=== PATIENT | female | born 1960 | race American Indian/Alaskan Native ===

== ENCOUNTER 2022-03-08 20:41 | Emergency (ER) | payer OTHER ==
--- NOTE | 2022-03-08 22:46 | XRay Report ---
CHEST 2 VIEWS INDICATION / CLINICAL INFORMATION: Upper Respiratory Infection. COMPARISON: None available. FINDINGS: SUPPORT DEVICES: None. HEART / MEDIASTINUM: Cardiomegaly. LUNGS / PLEURA: Central peribronchial thickening most likely representing bronchitis/bronchiolitis wi thout evidence for superimposed bacterial pneumonia. Left basilar atelectasis and/or trace effusion. No pneumothorax. ADDITIONAL FINDINGS: None IMPRESSION: 1. Central peribronchial thickening most likely representing bronchitis/bronchiolitis without evidenc e for superimposed bacterial pneumonia. Signer Name: Myke Munoz MD Signed: 03/08/2022 10:42 PM Workstation Name: [id number]
[2022-03-08 23:26] LABS: Basophils % (Auto) 0.3 % (0.0-1.8); Eosinophils # (Auto) 0.2 K/mm3 (0.0-0.4); Eosinophils % (Auto) 1.3 % (0.0-4.3); Hematocrit 28.3 % (30.3-42.9); Hemoglobin 9.1 gm/dl (10.1-14.3); Lymphocytes # (Auto) 1.3 K/mm3 (1.2-5.4); Lymphocytes % (Auto) 9.8 % (13.4-35.0); Mean Corpuscular HGB Conc 32 % (30-34); Mean Corpuscular Volume 82 fl (79-97); Monocytes # (Auto) 0.9 K/mm3 (0.0-0.8); Monocytes % (Auto) 7.3 % (0.0-7.3); Platelet Count 383 K/mm3 (140-440); Red Blood Count 3.46 M/mm3 (3.65-5.03)
[2022-03-09] MEDS ORDERED: MORPHINE 4 MG/1 ML INJ IV ONE (04:33)
[2022-03-09] MEDS ORDERED: dexAMETHasone 4 MG/ML VIAL IV ONE (04:33)
[2022-03-09 05:28] LABS: Alanine Aminotransferase 71 units/L (7-56); Albumin 3.1 g/dL (3.9-5); BUN/Creatinine Ratio 29; Blood Urea Nitrogen 23 mg/dL (7-17); Calcium 8.8 mg/dL (8.4-10.2); Hemolysis Index 6
[2022-03-09] MEDS ORDERED: SODIUM CHLORIDE 0.9% 1000 ML 1,000 ML IV ONE (06:23)
[2022-03-09] MEDS ORDERED: ALBUTEROL 2.5 MG/3 ML NEBU IH ONE (06:23)
[2022-03-09] MEDS ORDERED: ALBUTEROL 8.5 GM MDI INHALATION IH ONE (06:23)
[2022-03-09] MEDS ORDERED: KETOROLAC 30 MG/1 ML INJ IV ONE (06:24)
[2022-03-09 07:32] VITALS: BP 135/82
[2022-03-09 08:14] LABS: Creatine Kinase MB < 1.0 ng/mL (0.0-4.0)
--- NOTE | 2022-03-09 08:27 | Emergency Department Report ---
- General Chief Complaint: Upper Respiratory Infection Stated Complaint: CHEST DISCOMFORT PUI?: No Time Seen by Provider: 03/09/22 04:24 Source: EMS Mode of arrival: Stretcher Limitations: No Limitations - History of Present Illness Initial Comments: PT PRESENTED DISCHARGE INSTRUCTIONS FROM [facility] STATING PT HAS PLEURODYNIA, PT WENT TO URGENT CARE TODAY DENIED EMS TRANSPORT WENT HOME AND THEN CALLED 911 - C/O COUGHING WITH REPRODUCABLE CHEST PAIN MOVING TO RIGHT RIBS- PT IS TAKING NARCOTIC PAIN MEDS, PT NO ACUTE DISTRESS NOTED, AMBULATORY ON SCENE MD Complaint: cough, nasal congestion -: Gradual, days(s) Severity: moderate Consistency: intermittent Improves With: nothing Worsens With: nothing Associated Symptoms: cough. denies: denies other symptoms, fever, chills Treatments Prior to Arrival: none - Related Data Home Medications Medication Instructions Recorded Confirmed Last Taken Aspirin [Baby Aspirin] 81 mg PO QDAY 09/29/13 09/29/13 09/28/13 1 Celecoxib [Celebrex] 200 mg PO DAILY 09/29/13 09/29/13 09/28/13 1 Doxazosin Mesylate 8 mg PO DAILY 09/29/13 09/29/13 09/28/13 1 Felodipine [Plendil Tab] 10 mg PO QDAY 09/29/13 09/29/13 09/28/13 1 Naproxen Sodium [Aleve] 220 mg PO Q8H PRN 09/29/13 09/29/13 09/28/13 1 carvediloL [Coreg] 12.5 mg PO BID 09/29/13 09/29/13 09/28/13 1 cloNIDine HCL [Catapres] 0.1 mg PO TID 09/29/13 09/29/13 09/28/13 1 Previous Rx's Medication Instructions Recorded Last Taken Type Ciprofloxacin HCl [Cipro] 500 mg PO Q12H #10 tab 09/30/13 Unknown Rx Allergies Allergy/AdvReac Type Severity Reaction Status Date / Time No Known Allergies Allergy Verified 09/29/13 21:51 ED Review of Systems ROS: Stated complaint: CHEST DISCOMFORT Other details as noted in HPI Constitutional: denies: chills, fever Eyes: denies: eye pain, eye discharge, vision change ENT: denies: ear pain, throat pain Respiratory: denies: cough, shortness of breath, wheezing Cardiovascular: denies: chest pain, palpitations Endocrine: no symptoms reported Gastrointestinal: denies: abdominal pain, nausea, diarrhea Genitourinary: denies: urgency, dysuria, discharge Musculoskeletal: denies: back pain, joint swelling, arthralgia Skin: denies: rash, lesions Neurological: denies: headache, weakness, paresthesias Psychiatric: denies: anxiety, depression Hematological/Lymphatic: denies: easy bleeding, easy bruising ED Past Medical Hx - Past Medical History Previous Medical History?: Yes Hx Hypertension: Yes Hx Diabetes: Yes - Surgical History Past Surgical History?: Yes Additional Surgical History: LAP BAND - Social History Smoking Status: Unknown if ever smoked - Medications Home Medications: Home Medications Medication Instructions Recorded Confirmed Last Taken Type Aspirin [Baby Aspirin] 81 mg PO QDAY 09/29/13 09/29/13 09/28/13 History 1 Celecoxib [Celebrex] 200 mg PO DAILY 09/29/13 09/29/13 09/28/13 History 1 Doxazosin Mesylate 8 mg PO DAILY 09/29/13 09/29/13 09/28/13 History 1 Felodipine [Plendil Tab] 10 mg PO QDAY 09/29/13 09/29/13 09/28/13 History 1 Naproxen Sodium [Aleve] 220 mg PO Q8H PRN 09/29/13 09/29/13 09/28/13 History 1 carvediloL [Coreg] 12.5 mg PO BID 09/29/13 09/29/13 09/28/13 History 1 cloNIDine HCL [Catapres] 0.1 mg PO TID 09/29/13 09/29/13 09/28/13 History 1 Ciprofloxacin HCl [Cipro] 500 mg PO Q12H #10 tab 09/30/13 Unknown Rx ED Physical Exam - General Limitations: No Limitations General appearance: alert, in no apparent distress - Head Head exam: Present: atraumatic, normocephalic - Eye Eye exam: Present: normal appearance - ENT ENT exam: Present: mucous membranes moist - Neck Neck exam: Present: normal inspection - Respiratory Respiratory exam: Present: normal lung sounds bilaterally. Absent: respiratory distress - Cardiovascular Cardiovascular Exam: Present: regular rate, normal rhythm. Absent: systolic murmur, diastolic murmur, rubs, gallop - GI/Abdominal GI/Abdominal exam: Present: soft, normal bowel sounds - Extremities Exam Extremities exam: Present: normal inspection - Back Exam Back exam: Present: normal inspection - Neurological Exam Neurological exam: Present: alert, oriented X3 - Psychiatric Psychiatric exam: Present: normal affect, normal mood - Skin Skin exam: Present: warm, dry, intact, normal color. Absent: rash ED Course Vital Signs 03/08/22 03/09/22 03/09/22 21:26 03:34 04:16 Temperature 98.9 F 99.6 F Pulse Rate 92 H 84 73 Pulse Rate [ Bilateral Throughout] Respiratory 18 33 H 24 Rate Respiratory Rate [Bilateral Throughout] Blood Pressure 138/84 Blood Pressure 138/83 [Right] O2 Sat by Pulse 100 91 98 Oximetry 03/09/22 03/09/22 03/09/22 05:23 05:30 05:46 Temperature Pulse Rate 77 75 Pulse Rate [ Bilateral Throughout] Respiratory 33 H 26 H 24 Rate Respiratory Rate [Bilateral Throughout] Blood Pressure 130/75 123/77 Blood Pressure [Right] O2 Sat by Pulse 97 97 96 Oximetry 03/09/22 03/09/22 03/09/22 06:00 06:53 06:58 Temperature Pulse Rate 78 Pulse Rate [ 78 Bilateral Throughout] Respiratory 26 H 18 Rate Respiratory 20 Rate [Bilateral Throughout] Blood Pressure 123/77 Blood Pressure [Right] O2 Sat by Pulse 96 Oximetry 03/09/22 07:31 Temperature Pulse Rate 76 Pulse Rate [ Bilateral Throughout] Respiratory 20 Rate Respiratory Rate [Bilateral Throughout] Blood Pressure Blood Pressure 135/82 [Right] O2 Sat by Pulse 95 Oximetry ED Medical Decision Making - Lab Data Result diagrams: 03/08/22 22:55 03/08/22 22:55 - Radiology Data Radiology results: report reviewed, image reviewed - Medical Decision Making work up negative , neg trop twice , vss , x ray shwoed possible congestion , rt given will start wade bx Critical care attestation.: If time is entered above; I have spent that time in minutes in the direct care of this critically ill patient, excluding procedure time. ED Disposition Clinical Impression: Bronchitis Disposition: 01 HOME / SELF CARE / HOMELESS Is pt being admited?: No Does the pt Need Aspirin: No Condition: Stable Instructions: Chronic Bronchitis (ED), Upper Respiratory Infection, Adult, [id number] Referrals: PRIMARY CARE, [Primary Care Provider] - 3-5 Days
== END 2022-03-09 08:43 | disposition home or self-care (01) ==
LOC: ED 20:41
DX: J40 Bronchitis, not specified as acute or chronic (principal)
CPT/HCPCS: 36415; 71046; 80053; 82140; 82550; 82553; 84484; 85025; 94640; 96361; 96374; 96375; 99284; J1100; J1885; J2270; J7030; 94644